=== PATIENT | female | born 1980 | race African-American/Black ===

== ENCOUNTER 2021-03-09 04:31 | Day surgery (SDC) | payer OTHER ==
[2021-03-08 11:14] VITALS: BMI 29.2
[2021-03-09] MEDS ORDERED: ROPIVACAINE HCL 0.5% 30ML VIAL ONE (08:26)
[2021-03-09] MEDS ORDERED: MIDAZOLAM HCL 2 MG/2 ML SINGLE DOSE VIAL ONE ×2 (08:28)
[2021-03-09] MEDS ORDERED: PROPOFOL 20 ML ONE ×3 (09:27→13:00)
[2021-03-09] MEDS ORDERED: oxyCODONE HCL 5 MG TABLET PO PRN ×2 (10:22)
[2021-03-09] MEDS ORDERED: PROMETHAZINE HCL 25 MG/1 ML VIAL IVPUSH PRN (10:22)
[2021-03-09] MEDS ORDERED: ONDANSETRON 4 MG/2 ML VIAL IVPUSH PRN (10:22)
[2021-03-09] MEDS ORDERED: LACTATED RINGERS SOLUTION 1,000 ML IV SCH (10:30)
[2021-03-09 10:34] LABS: HEMATOCRIT 34.2 % (32.4-45.2); HEMOGLOBIN 11.4 GM/dL (10.7-15.3); MCH 26.1 pg (25.7-33.7); MCHC 33.5 g/dl (32.0-36.0); MEAN CELL VOLUME 77.9 fl (80-96); MEAN PLT VOLUME 8.6 fl (7.5-11.1); PLATELET COUNT 362 10^3/uL (134-434); RBC 4.39 M/mm3 (3.60-5.2); RDW 16.2 % (11.6-15.6); WHITE BLOOD COUNT 4.3 K/mm3 (4.0-10.0)
[2021-03-09 10:52] LABS: INR 1.04 (0.83-1.09); PROTHROMBIN TIME (PATIENT) 11.7 SEC (9.7-13.0)
[2021-03-09 10:53] LABS: CALCIUM 9.1 mg/dL (8.5-10.1)
[2021-03-09 10:54] LABS: ACTIVATED PTT 31.7 SECONDS (25.2-36.5); ALBUMIN 3.1 g/dl (3.4-5.0); BLOOD UREA NITROGEN 8.1 mg/dL (7-18)
[2021-03-09 10:57] LABS: CREATININE 0.7 mg/dL (0.55-1.3)
[2021-03-09 10:59] LABS: BILIRUBIN,TOTAL 0.4 mg/dL (0.2-1); TOT PROT 7.2 g/dl (6.4-8.2)
[2021-03-09] MEDS ORDERED: BUPIVACAINE HCL/PF 0.25% (2.5MG/ML) 10 ML VIAL ONE (12:15)
[2021-03-09] MEDS ORDERED: THROMBIN (BOVINE) 20,000 UNIT VIAL TP ONE (12:16)
[2021-03-09] MEDS ORDERED: ceFAZolin SODIUM 1 GM VIAL IVPB ONE (13:00)
[2021-03-09] MEDS ORDERED: LABETALOL HCL 5 MG/1 ML (100MG/20 ML VIAL) ONE (13:10)
[2021-03-09 16:34] VITALS: BP 131/83; PULSE 72; TEMP 97.2
== END 2021-03-09 16:44 | disposition home or self-care (01) ==
LOC: JASU-SURG 04:31
PROVIDERS: ATTEND Orthopaedic Surgery
PROC: 0RNK4ZZ Release Left Shoulder Joint, Percutaneous Endoscopic Approach (ICD-10-PCS; principal; 2021-03-09 11:30)
DX: M24.9 Joint derangement, unspecified (principal)
CPT/HCPCS: 36415; 80053; 84703; 85027; 85610; 85730; 94760